=== PATIENT | male | born 1955 | race Caucasian/White ===

== ENCOUNTER 2023-07-28 11:31 | Observation (INO) ==
--- NOTE | 2023-07-15 15:39 | Anesthesiology Consultation ---
Date of Service July 15, 2023 Assessment & Plan (1) Encounter for pre-operative examination: - Infectious disease screening: Per assessment on 07/15/23: No known infectious disease contacts or current infectious disease symptoms. No noted recent Covid positive test result. - PCP visit (01/17/23): "Hypertension-At this time stable on manual repeat 136/78.. Insomnia-Discontinue doxepin as it did not help, Trazodone was discontinued as well.. He has been trying some different things on his own lately.. Discussed Amitriptyline as an option as well, but he would like to hold off on it.. Back Pain.. Has seen Pain management.. Stable currently on Celebrex 200mg QD.. Continues with home exercises.. Nocturia.. Continue Flomax 0.4mg QD.. Discussed follow up visit with Urology for voiding studies and possible cysto.. Message sent to scheduling to assist with setting him back up.. Follow up 1 year or sooner PRN.. Upon assessment of this patient, I have determined they can complete IADL's independently: Yes" - Urology visit (07/07/23): "Patient follow-up after scope. Plan to evaluate after scope and discuss different options. Found to have extreme large median lobe with obstructive issues. Having considering possible intervention. Consider possible medications.. Trial of tamsulosin. Reviewed extensively different options. Patient has large median lobe causing obstructive issues has prostate enlargement. Was considering possible options such as dual therapy with finasteride. Did discuss possible issues including the plan for effectiveness. Discussed obstructive issues and concerns. Reviewed extensively different options including resuming TURP and other options. Reviewed greenlight. Discussed different options moving forward.. Patient states understanding and agrees to proceed. Will sign consent and schedule. Plan for TURP. Plan observation overnight with catheter for 7 days. " Chart Review Chart Review: Acceptable Risk for Surgery and Patient NOT seen in Pre Admission Testing History Surgery Operation Date: 07/28/23 13:40 Proposed Procedures p TURP (Transurethral Resection Prostate) - Drake Rothman DO Height/Weight Height: 6 ft 2 in Weight: 95.254 kg Allergies Allergy/AdvReac Type Severity Reaction Status Date / Time No Known Drug Allergies Allergy Verified 07/15/23 14:35 Medications Home Medications Medication Instructions Recorded Confirmed Last Taken multivitamin (Daily Multi-Vitamin 1 tab PO QAM 01/17/23 07/15/23 Unknown tablet) amlodipine 5 mg tablet 5 mg PO QAM 07/15/23 07/15/23 Unknown celecoxib 200 mg capsule (Celebrex) 200 mg PO QAM 07/15/23 07/15/23 Unknown irbesartan 300 mg tablet 300 mg PO QAM 07/15/23 07/15/23 Unknown tamsulosin 0.4 mg capsule 0.4 mg PO QPM 07/15/23 07/15/23 Unknown Past Medical History Medical History BPH w urinary obs/LUTS Chronic low back pain Cognitive impairment Frequent urination History of COVID-19 11/2021: fatigue, congestion > resolved HTN (hypertension) Hx of renal calculi Removed surgically Lumbar facet joint syndrome Lumbar transverse process fracture L2 and L3 R transverse process, 2013 Mild intellectual disability Lives with caregiver Past Family History Family History Brother Myocardial infarction Bone cancer Denies family history of Ovarian cancer Prostate cancer Diabetes Breast cancer Lung cancer Colorectal cancer Stroke Past Surgical History Surgical History H/O colonoscopy Colonoscopy 04/02/22, repeat 5 years in 2027 History of tooth extraction No history of previous surgery Social History Smoking Status: Never smoker Do You Dip or Chew Tobacco: No Hx Alcohol Use: No (former) Hx Substance Use: No substance use type: does not use Lab Results Anesthesia Preop Results Results Anesthesia Widget: WBC 7.81 K/ul (4.8-10.8) 07/14/23 Hgb 13.7 g/dl (14.0-18.0) L 07/14/23 Hct 41.5 % (42.0-52.0) L 07/14/23 Plt 244 K/uL (130-400) 07/14/23 Na 136 mmol/L (136-145) 07/14/23 K 4.8 mmol/L (3.5-5.1) 07/14/23 Cl 105 mmol/L (98-107) 07/14/23 CO2 27 mmol/L (21-32) 07/14/23 BUN 27 mg/dl (6-23) H 07/14/23 Creat 1.26 mg/dl (0.6-1.4) 07/14/23 Glucose Level 109 mg/dl (70-99(Fasting)) H 07/14/23 Testing Laboratory Results UA (07/08/23): negative blood/leuk est/nitrite URINE CULTURE (07/08/23): no growth Electrocardiogram Date: 07/14/23 NSR at 79bpm. NS TWA. Chest X-Ray Date: 09/06/22 FINDINGS: Lung volumes are normal. Lungs are clear. There is no pneumothorax or pleural effusion. There is mild cardiomegaly. Mediastinal contours are normal. There is no evidence for pulmonary edema. Several old left rib fractures are incidentally noted. IMPRESSION: No acute cardiopulmonary findings.
[2023-07-28] MEDS: LR 15ML/HR IV SCH (12:09)
--- NOTE | 2023-07-28 12:12 | History & Physical Bridge Note ---
Date of Service July 28, 2023 History & Physical Bridge Note I have examined the patient, reviewed the History & Physical and in the interval since the performance of the History & Physical I have noted the following changes of clinical significance: no changes noted
[2023-07-28] MEDS ORDERED: ePHEDrine sulfate 50 MG/ML AMP IV PRN (13:05)
[2023-07-28] MEDS ORDERED: fentaNYL citrate PF 100 MCG/2 ML VIAL IV PRN (13:05)
[2023-07-28] MEDS ORDERED: ATROPINE SULFATE 0.1 MG/ML 10ML SYR IV PRN (13:05)
[2023-07-28] MEDS ORDERED: ONDANSETRON INJ 2 MG/ML 2 ML VIAL IV PRN (13:05)
[2023-07-28] MEDS ORDERED: oxyCODONE/ACETAMINOPHEN 5mg/325mg TAB PO PRN (14:40)
[2023-07-28] MEDS ORDERED: oxyBUTYnin chloride 5 MG TAB PO PRN (14:40)
[2023-07-28] MEDS ORDERED: MoRPHine SULFATE 2 MG/ML CARP IV PRN (14:40)
[2023-07-28] MEDS ORDERED: PHENAZOPYRIDINE HCL 200 MG TAB PO PRN (14:40)
[2023-07-28] MEDS ORDERED: PROPOFOL IV EMULSION 10 MG/ML 20 ML VIAL IV ONE ×2 (14:51→16:46)
[2023-07-28] MEDS ORDERED: fentaNYL citrate PF 100 MCG/2 ML VIAL ONE (14:51)
[2023-07-28] MEDS ORDERED: LIDOCAINE 2% 2 ML VIAL/AMP(20MG/ML) INFIL ONE (14:51)
[2023-07-28] MEDS ORDERED: ONDANSETRON INJ 2 MG/ML 2 ML VIAL ONE (14:51)
[2023-07-28] MEDS ORDERED: MIDAZOLAM HCL 1 MG/ML 2ML VIAL ONE (14:52)
[2023-07-28] MEDS: ceFAZolin 2000MG 2,000 MG/15 ML SYR IV SCH ×2 (15:19→22:18)
--- NOTE | 2023-07-28 15:59 | Operative Report ---
PG Post Operative Report Pre & Post Diagnosis Operation Date: 07/28/23 12:55 Pre-Op Diagnosis: Benign Prostatic Hyperplasia with Urinary Obstruction Post-Op Diagnosis: Benign Prostatic Hyperplasia with Urinary Obstruction I identified the patient and participated in the time-out.: Yes Procedure Operation Date: 07/28/23 12:55 Actual Procedures p Transurethral resection of prostate(Not Applicable) - Drake Rothman DO Surgeon Drake Rothman, II, DO Sales Route Driver Helper None Estimated Blood Loss 10 Findings Consistent with Post-Op Diagnosis Large Median lobe with moderate enlarged Prostate with obstruction. Specimens Prostate adenoma. Drains 22Fr [address] Catheter Anesthesia Type General Complications none Disposition Disposition: Recovery Room Indications Patient with obstruction due to prostate enlargement. Risks and benefits discussed at length. Description of Procedure Patient was consented and brought back to the operating room. Patient was placed under anesthesia in the supine position and moved to the dorsal lithotomy position. Patient was prepped and draped in the regular sterile fashion. A time out was completed. A 30degree Cystoscope was placed into the bladder and the entire bladder was examined. The UO's were identified as well as the bladder neck, trigone, dome, and the other important landmarks. The prostatic urethra and large lobes/adenoma was assessed and the veru and bladder neck identified and area/size was assessed. The resection scope was placed and the fine bipolar loop was selected. Starting at the 5 and 7 o'clock positions, a channel was created from bladder neck to the veru. The median lobe was found to be severely enlarged and causing considerable amount of obstruction. The right and left lateral lobe also had some moderate obstruction and after the resection of the channel it appeared that there needed to be additional resection down along the lateral lobes. Starting at the 1 and 11 o'clock position the prostate was resected down to capsule fibers. All bleeding was controlled. The Specimen was removed and sent for analysis. The resection bed and any bleeding areas were fulgurated/cauterized and the entire area inspected. All bleeding was controlled. The bladder was inspected a final time. The bladder was emptied and irrigated. All specimen and debris was removed. The scope was removed with the bladder partially full. A catheter was placed and balloon elevated. This was easily irrigated. The patient was cleaned, aroused from anesthesia, and transferred to the pacu in stable condition having tolerated the procedure well with no complications. I was present and participated in all aspects of the procedure. The patient will be monitored in the PACU until transferred. Plan to monitor overnight. Will plan catheter removal in approx 10-14 days and followup at that time for pathology. I attest to the content of the Intraoperative Record and any orders documented therein. Any exceptions are noted below.
--- NOTE | 2023-07-28 16:20 | Anesthesiology Progress Note ---
Date of Service July 28, 2023 Anesthesia Post Procedure Vital Signs Vital Signs: Temp Pulse Pulse Resp BP Pulse Ox O2 Del Method 07/28/23 16:10 68 18 148/72 H 99 Oxymask 07/28/23 16:02 36.6 C 88 12 153/83 H 99 Oxymask 07/28/23 11:55 37.1 C 84 20 140/69 95 Room Air O2 Flow Rate 07/28/23 16:10 4 07/28/23 16:02 12 07/28/23 11:55 Transfer of Care Handoff Completed per policy Notes Mental Status: alert / awake / arousable and participated in evaluation Patient Amnestic to Procedure: Yes Nausea / Vomiting: adequately controlled Pain: adequately controlled Airway Patency, RR, SpO2: stable & adequate BP & HR: stable & adequate Hydration State: stable & adequate Anesthetic Complications: no major complications apparent
[2023-07-28 16:34] LABS: Basophils # (auto) 0.05 K/uL (0.00-0.20); Basophils % (auto) 0.7 %; Eosinophils # (auto) 0.15 K/uL (0.00-0.50); Eosinophils % (auto) 2.1 %; Hemoglobin 13.4 g/dl (14.0-18.0); Immature Granulocytes # (auto) 0.02 K/uL (0.01-0.20); Immature Granulocytes % (auto) 0.3 %; Lymphocytes # (auto) 1.38 K/uL (1.20-3.40); Lymphocytes % (auto) 19.7 %; Mean Corpuscular Hemoglobin 28.8 pg (25.0-34.0); Mean Corpuscular Hgb Conc 33.5 g/dL (32.0-36.0); Monocytes # (auto) 0.54 K/uL (0.11-0.59); Monocytes % (auto) 7.7 %; Neutrophils # (auto) 4.86 K/uL (1.40-6.50); Neutrophils % (auto) 69.5 %; Platelet Count 188 K/uL (130-400); RDW Coefficient of Variation 12.5 % (11.5-14.5); RDW Standard Deviation 39.3 fL (36.4-46.3); Red Blood Count 4.65 M/uL (4.70-6.10)
[2023-07-28 16:47] LABS: Albumin Globulin Ratio 1.3 (0.9-2); Albumin Level 3.5 gm/dl (3.4-5.0); BUN Creatinine Ratio 16.3 (10-20); Bilirubin,Total 0.5 mg/dl (0.2-1.0); Calcium 8.8 mg/dl (8.6-10.3); Creatinine Clr Calc Pharmacy 65.9 ml/min; Est GFR (Non-African American) 59.5 ml/min; Globulin 2.7 gm/dl (2.5-4.0); Potassium 4.5 mmol/L (3.5-5.1); Total Protein 6.2 gm/dl (6.0-8.3)
[2023-07-28] MEDS: SODIUM CHLORIDE 0.9% 1,000 ML IV SCH (17:19)
--- NOTE | 2023-07-28 18:34 | Communication Note ---
Date of Service: July 28, 2023 Chart reviewed but patient not seen given high amount of admissions and consults. Patient will be seen by the medicine tomorrow. No urgent medications need ordering overnight from chart review. Anti-hypertensives can be ordered if needed in AM. Post op labs reviewed and ordered CBC/BMP for AM. Please contact hospitalist occupational health coordinator for any urgent medical enquiries overnight.
[2023-07-28] MEDS: DOCUSATE SODIUM 100 MG CAP PO SCH (20:44)
[2023-07-29 07:40] LABS: Calcium 9.1 mg/dl (8.6-10.3); Potassium 4.7 mmol/L (3.5-5.1)
[2023-07-29 07:44] LABS: Basophils # (auto) 0.05 K/uL (0.00-0.20); Basophils % (auto) 0.6 %; Eosinophils # (auto) 0.18 K/uL (0.00-0.50); Eosinophils % (auto) 2.1 %; Hematocrit (blood only) 43.1 % (42.0-52.0); Hemoglobin 14.2 g/dl (14.0-18.0); Immature Granulocytes # (auto) 0.02 K/uL (0.01-0.20); Immature Granulocytes % (auto) 0.2 %; Lymphocytes # (auto) 1.41 K/uL (1.20-3.40); Lymphocytes % (auto) 16.2 %; Mean Corpuscular Hemoglobin 29.3 pg (25.0-34.0); Mean Corpuscular Hgb Conc 32.9 g/dL (32.0-36.0); Mean Platelet Volume 10.2 fL (9.4-12.4); Monocytes # (auto) 0.85 K/uL (0.11-0.59); Monocytes % (auto) 9.7 %; Neutrophils # (auto) 6.22 K/uL (1.40-6.50); Neutrophils % (auto) 71.2 %; Platelet Count 209 K/uL (130-400); RDW Coefficient of Variation 12.8 % (11.5-14.5); RDW Standard Deviation 42.2 fL (36.4-46.3); Red Blood Count 4.84 M/uL (4.70-6.10); White Blood Count 8.73 K/ul (4.8-10.8)
[2023-07-29 07:46] LABS: BUN Creatinine Ratio 14.3 (10-20); Creatinine Clr Calc Pharmacy 60.9 ml/min; Est GFR (African American) 62.8 ml/min; Est GFR (Non-African American) 54.2 ml/min
--- NOTE | 2023-07-29 09:36 | Urology Progress Note ---
Date of Service July 29, 2023 Assessment & Plan (1) BPH w urinary obs/LUTS: Plan: - Pt POD#1 s/p TURP with Dr. Rothman - Doing well, progressing as expected - Afebrile, vitals stable - Labs reviewedcreatinine 1.33, WBC 8.73, hemoglobin 14.2 - Tolerating PO diet - 3 way Penn catheter intact, patent and draining clear yellow urine with CBI on slow - CBI clamped this am, nursing aware - will reassess later this AM - Maintain Penn catheter for 10 to 14 days - Anticipate home with Penn catheter later today presuming urine appropriate and he continues to progress as expected - Expected clinical course reviewed, all questions answered - Will arrange outpatient follow-up with our service for postop follow-up and voiding trial Admission and Anticipated Discharge Date Admission Date: July 28, 2023 Subjective Patient seen and examined at bedside this morning He is awake and sitting up in bedside chair eating breakfast No acute issues overnight Denies pain Penn patent and draining clear yellow urine with CBI on slowCBI clamped during exam Denies fever, chills, nausea or vomiting Review of Systems Constitutional: as per Subjective / HPI Gastrointestinal: as per Subjective / HPI Genitourinary: + as per Subjective / HPI Physical Exam Constitutional: no acute distress Respiratory: normal respiratory effort; no respiratory distress and no labored breathing Gastrointestinal (Abdomen): Inspection/Auscultation: abdomen normal to inspection Musculoskeletal: Head/Neck/Chest: normocephalic Neurologic: moves all extremities and awake Psychiatric: Orientation: alert Genitourinary: Penn patent and draining clear yellow urine with CBI on slow, CBI clamped during exam Results & Data Vital Signs (Past 12 Hours) Vital Signs Temp Pulse Resp BP Pulse Ox O2 Del Method 07/29/23 07:40 36.6 C 70 16 145/71 H 97 Room Air 07/29/23 03:03 36.8 C 70 16 115/71 96 Room Air 07/28/23 23:07 37.1 C 75 18 122/67 95 Room Air PG Care Time/CCT Total # of Minutes Spent Total Time Spent with Patient: Total time spent is greater than 50% in coordination of care (as documented) at patient's floor/unit and/or counseling patient: Coding Level of Care Code None Diagnoses BPH w urinary obs/LUTS N40.1; N13.8
--- NOTE | 2023-07-29 11:59 | Discharge Summary ---
Date of Service July 29, 2023 Admission HPI Per Admitting Provider Patient with BPH with urinary obstruction/LUTS here for transurethral resection of prostate. Admission Exam Per Admitting Provider General: Alert in no acute distress. HEENT: Inspection normal Psychologic: Normal affect. Respiratory: Nonlabored. No use of accessory muscles. Skin: [place] and Dry. No rashes or visible lesions. Principal Diagnosis BPH with urinary obstruction/lower urinary tract symptoms Discharge Exam Constitutional no acute distress Respiratory normal respiratory effort; no respiratory distress and no labored breathing Gastrointestinal (Abdomen) Inspection/Auscultation: abdomen normal to inspection Musculoskeletal Head/Neck/Chest: normocephalic Neurologic moves all extremities and awake Psychiatric Orientation: alert Genitourinary Penn draining clear yellow urine Discharge Data Allergies Allergy/AdvReac Type Severity Reaction Status Date / Time No Known Drug Allergies Allergy Verified 07/28/23 12:12 Procedures Performed Operation Date: 07/28/23 12:55 Actual Procedures p Transurethral resection of prostate(Not Applicable) - Drake Rothman, DO Hospital Course (1) BPH w urinary obs/LUTS: - Pt POD#1 s/p TURP with Dr. Rothman - Doing well, progressing as expected - Afebrile, vitals stable - Labs reviewedcreatinine 1.33, WBC 8.73, hemoglobin 14.2 - Tolerating PO diet - 3 way Penn catheter intact, patent and draining clear yellow urine with CBI on slow - CBI clamped this am, nursing aware - will reassess later this AM - Maintain Penn catheter for 10 to 14 days - Anticipate home with Penn catheter later today presuming urine appropriate and he continues to progress as expected - Expected clinical course reviewed, all questions answered - Will arrange outpatient follow-up with our service for postop follow-up and vo iding trial Total Time Total Time Spent Total Time Spent (In Minutes): 29 Discharge Plan Discharge Items Patient Disposition: Home - Self-Care Reason For Visit: BPH Discharge Diagnosis: Same Activity: Resume your previous activity Lifting: No more than 50 pounds Bathing Comment: Okay to shower after discharge Sexual Activity: Wait until after follow-up appointment Exercise/Sports: Wait until after follow-up appointment Driving/Machine Use: Resume 1 day after discharge Non-emergency contact: Urologist Call non-emergency contact if: you have any medication questions, your pain is not controlled, your pain is unusual for you, your pain is concerning for you and your temperature is above 101.5 Follow-up/Referrals: Drake Rothman, [Physician] - 08/08/23 11:45 am Diet: Regular Addtl Attending Provider Instructions: Please take all medications as prescribed and keep all follow-ups as scheduled. Please call our office at [phone] with any questions, concerns or need to reschedule appointments for any reason. We are happy to assist you. Tips for your recovery at home: Dont be alarmed by brownish or reddish blood or clots in your urine. This is a result of the procedure. This may occur off and on for weeks to months after the procedure but should continue to improve. Drink plenty of fluids during the day (enough to keep your urine very light colored). This will help keep a healthy flow of urine. Do not lift >25 lbs until your followup Avoid constipation. Please use a stool softener (Colace) for the first two weeks after your procedure Be sure to finish the antibiotics as prescribed. If you go home with a catheter, please wash tubing where it enters your body twice daily with mild soap (Dove or Dial). Once your catheter is removed, expect some blood in your urine and some burning when you urinate. You should have an appointment to have this removed, if you do not please call our office to arrange. Pending Studies at Discharge: Yes Stand-Alone Forms: [facility] Medications and DC Order Prescriptions: New cephalexin 500 mg capsule 500 mg PO BID 5 Days Qty: 10 0RF Continued irbesartan 300 mg tablet See Rx Instructions .ROUTE .COMPLEX Qty: 90 3RF Dose Instruction: Take 1 tablet by mouth once daily Rx Instructions: Take 1 tablet by mouth once daily multivitamin [Daily Multi-Vitamin] Tablet 1 tab PO QAM celecoxib [Celebrex] 200 mg capsule 200 mg PO QAM amlodipine 5 mg tablet 5 mg PO QAM Rx Instructions: Take 1 tablet by mouth once daily tamsulosin 0.4 mg capsule 0.4 mg PO QPM Discharge Orders: Discharge Order (Routine); Ordered 07/29/23 Ordered By: Cherry Mitchell Admission Data Admit Date/Time: 07/28/23 14:40 Attending Provider: Drake Rothman Admit Provider: Drake Rothman Primary Care Provider: Tyrese Maria Other Interventions: Discharge Summary Assessment (RN) Last Done: 07/29/23 12:36 Coding Level of Care Code 27843 IN/OBS DISCH 30 MIN/LESS Diagnoses BPH w urinary obs/LUTS N40.1; N13.8
== END 2023-07-29 13:50 | disposition home or self-care (01) ==
LOC: ASU 11:31 → 3N 11:31